=== PATIENT | male | born 1980 | race Hispanic/Latino ===

== ENCOUNTER 2016-09-10 21:13 | Emergency (ER) | payer MEDICAID, OTHER ==
[2016-09-10 21:13] VITALS: BMI 39.5
[2016-09-10 21:23] VITALS: BP 132/75; PULSE 97; RESP 17; TEMP 98.4; O2SAT 98
--- NOTE | 2016-09-10 23:14 | ED PDOC ---
HPI: Skin/Bite Injury Time Seen by Provider: 09/10/16 21:22 Chief Complaint (Nursing): Abnormal Skin Integrity Chief Complaint (Provider): Lip laceration History Per: Patient History/Exam Limitations: no limitations Onset/Duration Of Symptoms: Mins Current Symptoms Are (Timing): Still Present Quality Of Symptoms: Painful Severity: Mild Pain Scale Rating Of: 3 Additional Complaint(s): Pt states he was walking and not paying attention when he tripped on a bench. Tetanus 1.5 years ago. Past Medical History Reviewed: Historical Data, Nursing Documentation, Vital Signs Vital Signs: Last Vital Signs Temp 98.4 F 09/10/16 21:19 Pulse 97 H 09/10/16 21:19 Resp 17 09/10/16 21:19 BP 132/75 09/10/16 21:19 Pulse Ox 98 09/10/16 21:19 - Medical History PMH: Asthma, Bronchitis, Hiatal Hernia, Pneumonia - Surgical History Surgical History: No Surg Hx - Family History Family History: States: Unknown Family Hx - Living Arrangements Living Arrangements: With Family - Social History Current smoker - smoking cessation education provided: Yes Alcohol: Occasional Drugs: Denies - Immunization History Hx Tetanus Toxoid Vaccination: No Hx Influenza Vaccination: No Hx Pneumococcal Vaccination: No - Home Medications Home Medications: Ambulatory Orders Medication Instructions Recorded No Known Home Med 09/10/16 - Allergies Allergies/Adverse Reactions: Allergies Allergy/AdvReac Type Severity Reaction Status Date / Time No Known Allergies Allergy Verified 06/17/16 12:52 Review of Systems ROS Statement: Except As Marked, All Systems Reviewed And Found Negative Skin: Positive for: Other Physical Exam - Reviewed Nursing Documentation Reviewed: Yes Vital Signs Reviewed: Yes - Physical Exam Appears: Positive for: Well, Non-toxic, No Acute Distress Head Exam: Positive for: ATRAUMATIC, NORMAL INSPECTION, NORMOCEPHALIC Skin: Positive for: Warm. Negative for: Normal Color ((+) 2.5 cm laceratin, left upper lip through the [place] boarder, (+) 2 cm laceration inner upp lip ) Eye Exam: Positive for: Normal appearance, EOMI, PERRL ENT: Positive for: Normal ENT Inspection Neck: Positive for: Normal, Painless ROM Cardiovascular/Chest: Positive for: Regular Rate, Rhythm Respiratory: Positive for: CNT, Normal Breath Sounds Gastrointestinal/Abdominal: Positive for: Normal Exam, Bowel Sounds, Soft Back: Positive for: Normal Inspection Extremity: Positive for: Normal ROM Neurologic/Psych: Positive for: Alert, Oriented - ECG O2 Sat by Pulse Oximetry: 98 Pulse Ox Interpretation: Normal Medical Decision Making Medical Decision Making: Antibiotic ointment applied on upper left lip/mouth Disposition - Clinical Impression Clinical Impression: Lip laceration - Patient ED Disposition Is Patient to be Admitted: No Counseled Patient/Family Regarding: Diagnosis, Need For Followup - Disposition Referrals: Provider MINOO, [Primary Care Provider] - [facility] [Outside] Disposition: Routine/Home Disposition Time: 23:07 Condition: GOOD Instructions: Care For Your Absorbable Stitches (ED) Laceration - Laceration Repair Upper left Wound Length (In cm): 2.5 Description Of Wound: Linear Anesthesia: Lidocaine 1% (1cc) Wound Examination: Irrigated With Saline, No FB With Wound Exploration, No Tendon Injury With Wound Exploration Wound Closure: Suture (6.0) Suture Technique And Material Used: Interrupted (#7 ), Chromic Wound Complexity: Simple Inner upper lip Wound Length (In cm): 2cm Description Of Wound: Irregular Anesthesia: Lidocaine 1% (1cc) Wound Examination: Irrigated With Saline, No FB With Wound Exploration, No Tendon Injury With Wound Exploration Wound Closure: Suture (#4 ) Suture Technique And Material Used: Running (6.0), Chromic Wound Complexity: Simple
== END 2016-09-10 23:20 | disposition home or self-care (01) ==
LOC: H.ER 21:13
DX: S01.511A Laceration without foreign body of lip, initial encounter (principal); F17.200 Nicotine dependence, unspecified, uncomplicated; J45.909 Unspecified asthma, uncomplicated

== ENCOUNTER 2017-05-02 07:14 | Emergency (ER) | payer OTHER ==
[2017-05-02 07:15] VITALS: BMI 39.5
[2017-05-02 07:28] VITALS: BP 138/92; PULSE 105; RESP 17; TEMP 97.7; O2SAT 98
[2017-05-02] MEDS ORDERED: Albuterol 0.083% Inhal Sol (2.5 mg/3 mL) UD INH ONE (08:18)
--- NOTE | 2017-05-02 09:05 | ED PDOC ---
HPI: CCC, URI, Sore Throat Time Seen by Provider: 05/02/17 07:19 Chief Complaint (Nursing): Cough, Cold, Congestion Chief Complaint (Provider): Cough History Per: Patient History/Exam Limitations: no limitations Have you had recent travel within the past 21 days to any of the following countries: [place], [place], [place] or [place]?: No Onset/Duration Of Symptoms: Days Current Symptoms Are (Timing): Still Present Location Of Pain: Throat Associated Symptoms: Sore Throat, Cough, Sputum, Myalgias Additional History Per: Patient Additional Complaint(s): 36yo male, presents to ED for evaluation of a productive cough with green sputum for the past 3 days. Patient also reports associated throat pain; he denies any fever, vomiting or diarrhea. Patient denies any known sick contacts. No other complaints. Past Medical History Vital Signs: Last Vital Signs Temp 97.7 F 05/02/17 07:25 Pulse 105 H 05/02/17 07:25 Resp 17 05/02/17 07:25 BP 138/92 H 05/02/17 07:25 Pulse Ox 98 05/02/17 09:07 - Medical History PMH: Asthma, Bronchitis, Hiatal Hernia, HTN, Pneumonia - Surgical History Surgical History: No Surg Hx - Family History Family History: States: No Known Family Hx, Unknown Family Hx - Social History Current smoker - smoking cessation education provided: Yes SMOKER/PACKS PER DAY:: 1 - Immunization History Hx Tetanus Toxoid Vaccination: No Hx Influenza Vaccination: No Hx Pneumococcal Vaccination: No - Home Medications Home Medications: Ambulatory Orders Medication Instructions Recorded No Known Home Med 09/10/16 - Allergies Allergies/Adverse Reactions: Allergies Allergy/AdvReac Type Severity Reaction Status Date / Time No Known Allergies Allergy Verified 06/17/16 12:52 Review of Systems ROS Statement: Except As Marked, All Systems Reviewed And Found Negative Constitutional: Negative for: Fever ENT: Positive for: Throat Pain Respiratory: Positive for: Cough Gastrointestinal: Negative for: Vomiting, Diarrhea Physical Exam - Reviewed Nursing Documentation Reviewed: Yes Vital Signs Reviewed: Yes - Physical Exam Appears: Positive for: Non-toxic Head Exam: Positive for: ATRAUMATIC Skin: Positive for: Normal Color Eye Exam: Positive for: Normal appearance ENT: Positive for: Pharyngeal Erythema. Negative for: Tonsillar Exudate, Tonsillar Swelling Neck: Positive for: Normal, Supple Cardiovascular/Chest: Positive for: Regular Rate, Rhythm Respiratory: Positive for: Rhonchi (right > left ). Negative for: Respiratory Distress Neurologic/Psych: Positive for: Alert, Oriented. Negative for: Motor/Sensory Deficits - ECG O2 Sat by Pulse Oximetry: 98 (RA) Pulse Ox Interpretation: Normal Medical Decision Making Medical Decision Making: Time: 809 Impression: URI Plan: -- Throat culture -- Toradol 30 mg IM -- Albuterol -- Chest x-ray Reassess Time: 1101 Chest x-ray reviewed with no acute disease. Patient reports feeling much better and is stable for discharge home. Given prescriptions for antibiotics and informed to follow up with PCP in 1-2 days. Scribe Attestation: Documented by Diamond Dos Santos acting as a scribe for Nuzhat Ramos MD. Provider Attestation: All medical record entries made by the Scribe were at my direction and personally dictated by me. I have reviewed the chart and agree that the record accurately reflects my personal performance of the history, physical exam, medical decision making, and the department course for this patient. I have also personally directed, reviewed, and agree with the discharge instructions and disposition. Disposition - Disposition Referrals: Mustapha Herron MD [Primary Care Provider] - Disposition: Routine/Home Disposition Time: 11:01 Condition: STABLE Forms: [employer] ([place])
--- NOTE | 2017-05-02 10:22 | RAD ---
HISTORY: cough COMPARISON: No prior. TECHNIQUE: Chest PA and lateral FINDINGS: LUNGS: No active pulmonary disease. PLEURA: No significant pleural effusion identified. No pneumothorax apparent. CARDIOVASCULAR: Normal. OSSEOUS STRUCTURES: No significant abnormalities. VISUALIZED UPPER ABDOMEN: Normal. OTHER FINDINGS: None. IMPRESSION: No active disease.
== END 2017-05-02 11:29 | disposition home or self-care (01) ==
LOC: SUPCPDRO 07:14 → H.ER 07:14
DX: J45.909 Unspecified asthma, uncomplicated (principal); I10 Essential (primary) hypertension
CPT/HCPCS: 71020; 87070; 87430; 94640; 96372; 99282; J1885

== ENCOUNTER 2017-05-26 16:20 | Emergency (ER) | payer OTHER ==
[2017-05-26 16:21] VITALS: BMI 39.5
[2017-05-26] MEDS ORDERED: Albuterol-Ipratrop 3 mg / 0.5 (3 ml) UD ONE (18:26)
[2017-05-26] MEDS: Albuterol-Ipratrop 3 mg / 0.5 (3 ml) UD INH STA (18:26)
[2017-05-26 18:28] VITALS: RESP 18; O2SAT 98
--- NOTE | 2017-05-26 18:38 | ED PDOC ---
HPI: SOB/CHF/COPD Time Seen by Provider: 05/26/17 16:40 Chief Complaint (Nursing): Shortness Of Breath Chief Complaint (Provider): Shortness Of Breath History Per: Patient History/Exam Limitations: no limitations Onset/Duration Of Symptoms: Days (x6) Current Symptoms Are (Timing): Still Present Additional Complaint(s): Lamont Camarillo is a 36 year old male with a past medical history of bronchitis who presents to the ED complaining of shortness of breath and cough x6 days. Patient states his symptoms have been presents since Tuesday and he saw his PMD Tuesday. States his PMD prescribed him Prednisone, antibiotics, and an Albuterol pump, but he lost the prescription for the Albuterol pump. Denies fever, vomiting, chest pain, and diarrhea, but confirms minimal cough. PMD: Non-[facility] Provider Past Medical History Reviewed: Historical Data, Nursing Documentation, Vital Signs Vital Signs: Last Vital Signs Temp 98.6 F 05/26/17 19:07 Pulse 86 05/26/17 19:07 Resp 18 05/26/17 19:07 BP 120/68 05/26/17 19:07 Pulse Ox 98 05/26/17 19:07 - Medical History PMH: Asthma, Bronchitis, Hiatal Hernia, HTN, Pneumonia - Family History Family History: States: Unknown Family Hx - Immunization History Hx Tetanus Toxoid Vaccination: No Hx Influenza Vaccination: No Hx Pneumococcal Vaccination: No - Home Medications Home Medications: Ambulatory Orders Medication Instructions Recorded Albuterol HFA [Ventolin HFA 90 1 - 2 puff IH Q4H PRN #1 bottle 05/02/17 mcg/actuation (8 g)] Azithromycin [Zithromax] 250 mg PO DAILY #6 tab 05/02/17 Albuterol HFA [Ventolin HFA 90 1 - 2 puff IH Q4H PRN #1 bottle 05/26/17 mcg/actuation (8 g)] - Allergies Allergies/Adverse Reactions: Allergies Allergy/AdvReac Type Severity Reaction Status Date / Time No Known Allergies Allergy Verified 06/17/16 12:52 Review of Systems ROS Statement: Except As Marked, All Systems Reviewed And Found Negative Constitutional: Negative for: Fever Cardiovascular: Negative for: Chest Pain Respiratory: Positive for: Cough (minimal), Shortness of Breath Gastrointestinal: Negative for: Vomiting, Diarrhea Physical Exam - Reviewed Nursing Documentation Reviewed: Yes Vital Signs Reviewed: Yes - Physical Exam Appears: Positive for: Non-toxic, No Acute Distress Head Exam: Positive for: ATRAUMATIC, NORMAL INSPECTION, NORMOCEPHALIC Skin: Positive for: Normal Color, Warm, Dry Eye Exam: Positive for: EOMI, Normal appearance, PERRL Neck: Positive for: Normal, Painless ROM, Supple Cardiovascular/Chest: Positive for: Regular Rate, Rhythm. Negative for: Murmur Respiratory: Positive for: Normal Breath Sounds. Negative for: Wheezing, Respiratory Distress Gastrointestinal/Abdominal: Positive for: Normal Exam, Bowel Sounds, Soft. Negative for: Tenderness Back: Positive for: Normal Inspection. Negative for: L CVA Tenderness, R CVA Tenderness, Vertebral Tenderness Extremity: Positive for: Normal ROM. Negative for: Pedal Edema, Deformity Neurologic/Psych: Positive for: Alert, Oriented (x3). Negative for: Motor/ Sensory Deficits - ECG O2 Sat by Pulse Oximetry: 98 (RA) Pulse Ox Interpretation: Normal Medical Decision Making Medical Decision Making: Time: 18:09 Initial Impression: Shortness of breath --Duoneb 3 ml INH --Nebulizer treatment --Peak flow --Reevaluation pt feels better w medication. Scribe Attestation: Documented by Dale Lara acting as a scribe for Nuzhat Ramos MD. Scribe Attestation: All medical record entries made by the Scribe were at my direction and personally dictated by me. I have reviewed the chart and agree that the record accurately reflects my personal performance of the history, physical exam, medical decision making, and the department course for this patient. I have also personally directed, reviewed, and agree with the discharge instructions and disposition. Disposition - Clinical Impression Clinical Impression: Bronchitis - Patient ED Disposition Is Patient to be Admitted: No Counseled Patient/Family Regarding: Studies Performed, Diagnosis, Need For Followup - Disposition Disposition: Routine/Home Disposition Time: 18:50 Condition: IMPROVED Additional Instructions: follow up with your primary doctor in 1-2 days continue recently prescribed medications for bronchitis return to the ED with any worsening or concerning symptoms Prescriptions: Albuterol HFA [Ventolin HFA 90 mcg/actuation (8 g)] 1 - 2 puff IH Q4H PRN #1 bottle PRN Reason: Wheezing Instructions: Acute Bronchitis (ED) Forms: [employer] (E[place]ian), [facility] ED School/Work Excuse
[2017-05-26 19:07] VITALS: BP 120/68; PULSE 86; TEMP 98.6
--- NOTE | 2017-05-27 15:55 | CARD ---
APPROVED REPORT EKG Measurement Heart [id number] <Conclusion> Normal sinus rhythm Normal ECG
== END 2017-05-26 19:07 | disposition home or self-care (01) ==
LOC: H.ER 16:20
DX: J44.9 Chronic obstructive pulmonary disease, unspecified (principal); I10 Essential (primary) hypertension

== ENCOUNTER 2017-05-31 21:47 | Emergency (ER) | payer OTHER ==
[2017-05-31 21:47] VITALS: BMI 39.5
[2017-05-31 21:54] VITALS: BP 151/96; PULSE 107; RESP 20; TEMP 97.9; O2SAT 97
[2017-05-31] MEDS ORDERED: Albuterol-Ipratrop 3 mg / 0.5 (3 ml) UD INH STA (22:01)
--- NOTE | 2017-05-31 22:03 | ED PDOC ---
HPI: SOB/CHF/COPD Time Seen by Provider: 05/31/17 21:54 Chief Complaint (Nursing): Shortness Of Breath Chief Complaint (Provider): SOB History Per: Patient Additional Complaint(s): 36 yo male, PMH of HTN, presents to ED with complaints of wheezing and shortness of breath since this morning. Pt seen and evaluated here 2 days ago for the same, was diagnosed with bronchitis and lost his inhaler .Pt able to speak in full sentences without difficulty. Past Medical History Reviewed: Nursing Documentation, Vital Signs Vital Signs: Last Vital Signs Temp 97.9 F 05/31/17 21:51 Pulse 107 H 05/31/17 21:51 Resp 20 05/31/17 21:51 BP 151/96 H 05/31/17 21:51 Pulse Ox 97 05/31/17 22:03 - Medical History PMH: Asthma, Bronchitis, Hiatal Hernia, HTN, Pneumonia - Family History Family History: States: Unknown Family Hx - Living Arrangements Living Arrangements: With Family - Social History Current smoker - smoking cessation education provided: Yes Alcohol: Social Drugs: Denies - Immunization History Hx Tetanus Toxoid Vaccination: No Hx Influenza Vaccination: No Hx Pneumococcal Vaccination: No - Home Medications Home Medications: Ambulatory Orders Medication Instructions Recorded Albuterol HFA [Ventolin HFA 90 1 - 2 puff IH Q4H PRN #1 bottle 05/02/17 mcg/actuation (8 g)] Azithromycin [Zithromax] 250 mg PO DAILY #6 tab 05/02/17 Albuterol HFA [Ventolin HFA 90 1 - 2 puff IH Q4H PRN #1 bottle 05/26/17 mcg/actuation (8 g)] Albuterol HFA [Ventolin HFA 90 2 puff IH [id number] PRN #1 puff 05/31/17 mcg/actuation (8 g)] Promethazine HCl/Codeine 5 ml PO HS #80 ml 05/31/17 [Prometh-Codein 6.25-10 mg/5 ml] - Allergies Allergies/Adverse Reactions: Allergies Allergy/AdvReac Type Severity Reaction Status Date / Time No Known Allergies Allergy Verified 06/17/16 12:52 Review of Systems ROS Statement: Except As Marked, All Systems Reviewed And Found Negative Respiratory: Positive for: Cough, Shortness of Breath Physical Exam - Reviewed Nursing Documentation Reviewed: Yes Vital Signs Reviewed: Yes - Physical Exam Appears: Positive for: Well, Non-toxic, No Acute Distress Head Exam: Positive for: ATRAUMATIC, NORMAL INSPECTION, NORMOCEPHALIC Skin: Positive for: Normal Color, Warm, DRY Eye Exam: Positive for: EOMI, Normal appearance, PERRL ENT: Positive for: Normal ENT Inspection Neck: Positive for: Normal, Painless ROM Cardiovascular/Chest: Positive for: Regular Rate, Rhythm Respiratory: Positive for: Wheezing (expiratory b/l) Gastrointestinal/Abdominal: Positive for: Normal Exam, Bowel Sounds, Soft Back: Positive for: Normal Inspection Extremity: Positive for: Normal ROM Neurologic/Psych: Positive for: Alert, Oriented - ECG O2 Sat by Pulse Oximetry: 97 Medical Decision Making Medical Decision Making: Medicated with Duo neb and prednisone PO ON re-eval, pt doing well, no complaints of pain Lungs CTA b/l with full resolution of wheezing. POX: 100% on RA Disposition - Clinical Impression Clinical Impression: Bronchospasm, acute - Patient ED Disposition Is Patient to be Admitted: No - Disposition Disposition: Routine/Home Disposition Time: 22:10 Condition: STABLE Prescriptions: Albuterol HFA [Ventolin HFA 90 mcg/actuation (8 g)] 2 puff IH [id number] PRN #1 puff PRN Reason: Shortness Of Breath Promethazine HCl/Codeine [Prometh-Codein 6.25-10 mg/5 ml] 5 ml PO HS #80 ml Instructions: Bronchospasm (ED) Forms: [employer] [facility] ([place]alian), [facility] ED School/Work Excuse
== END 2017-05-31 22:53 | disposition home or self-care (01) ==
LOC: H.ER 21:47
DX: J98.01 Acute bronchospasm (principal); I10 Essential (primary) hypertension; F17.200 Nicotine dependence, unspecified, uncomplicated

== ENCOUNTER 2017-06-13 09:03 | Emergency (ER) | payer OTHER ==
[2017-06-13 09:03] VITALS: BMI 39.5
[2017-06-13 09:11] VITALS: BP 137/80; PULSE 96; TEMP 97; O2SAT 96
[2017-06-13] MEDS ORDERED: Albuterol-Ipratrop 3 mg / 0.5 (3 ml) UD INH STA ×3 (11:17→11:38)
[2017-06-13] MEDS ORDERED: Albuterol-Ipratrop 3 mg / 0.5 (3 ml) UD ONE ×2 (11:21→11:48)
[2017-06-13] MEDS ORDERED: Promethazine/Cod 6.25mg-10mg/5ml Syr UD PO STA (11:39)
[2017-06-13] MEDS ORDERED: Promethazine/Cod 6.25mg-10mg/5ml Syr UD ONE (11:48)
--- NOTE | 2017-06-13 11:54 | ED PDOC ---
HPI: CCC, URI, Sore Throat Time Seen by Provider: 06/13/17 10:48 Chief Complaint (Nursing): Cough, Cold, Congestion Chief Complaint (Provider): Cough, Cold, Congestion History Per: Patient History/Exam Limitations: no limitations Onset/Duration Of Symptoms: Days (x 1 week) Current Symptoms Are (Timing): Still Present Additional Complaint(s): 36 year old male with a hsitory of asthma presents to the ED c/o cough, congestion and wheezing, onset 1 week. 3 days ago he went to the hospital in [place] where he was diagnosed with asthma adheather sylvester. Was given steroids and albuterol treatment. Symptoms have improved but are still present. Denies fever and chest pain. PMD: Dr. Mustapha Saldana Past Medical History Reviewed: Historical Data, Nursing Documentation, Vital Signs Vital Signs: Last Vital Signs Temp 97 F L 06/13/17 09:10 Pulse 96 H 06/13/17 09:10 Resp BP 137/80 06/13/17 09:10 Pulse Ox 96 06/13/17 12:44 - Medical History PMH: Asthma, Bronchitis, Hiatal Hernia, HTN, Pneumonia - Surgical History Surgical History: No Surg Hx - Family History Family History: States: Unknown Family Hx - Social History Current smoker - smoking cessation education provided: Yes Alcohol: None Drugs: Denies - Immunization History Hx Tetanus Toxoid Vaccination: No Hx Influenza Vaccination: No Hx Pneumococcal Vaccination: No - Home Medications Home Medications: Ambulatory Orders Medication Instructions Recorded Albuterol HFA [Ventolin HFA 90 1 - 2 puff IH Q4H PRN #1 bottle 05/02/17 mcg/actuation (8 g)] Azithromycin [Zithromax] 250 mg PO DAILY #6 tab 05/02/17 Albuterol HFA [Ventolin HFA 90 1 - 2 puff IH Q4H PRN #1 bottle 05/26/17 mcg/actuation (8 g)] Albuterol HFA [Ventolin HFA 90 2 puff IH [id number] PRN #1 puff 05/31/17 mcg/actuation (8 g)] Promethazine HCl/Codeine 5 ml PO HS #80 ml 05/31/17 [Prometh-Codein 6.25-10 mg/5 ml] - Allergies Allergies/Adverse Reactions: Allergies Allergy/AdvReac Type Severity Reaction Status Date / Time No Known Allergies Allergy Verified 06/17/16 12:52 Review of Systems ROS Statement: Except As Marked, All Systems Reviewed And Found Negative Constitutional: Negative for: Fever ENT: Positive for: Nose Congestion Cardiovascular: Negative for: Chest Pain Respiratory: Positive for: Cough, Wheezing Physical Exam - Reviewed Nursing Documentation Reviewed: Yes Vital Signs Reviewed: Yes - Physical Exam Appears: Positive for: Non-toxic, No Acute Distress Head Exam: Positive for: ATRAUMATIC, NORMOCEPHALIC Skin: Positive for: Normal Color, Warm, Dry Eye Exam: Positive for: EOMI Neck: Positive for: Normal, Painless ROM, Supple Cardiovascular/Chest: Positive for: Regular Rate, Rhythm. Negative for: Edema Respiratory: Positive for: Wheezing (bilaterally). Negative for: Accessory Muscle Use Gastrointestinal/Abdominal: Positive for: Soft. Negative for: Tenderness Extremity: Positive for: Normal ROM. Negative for: Deformity, Swelling Neurologic/Psych: Positive for: Alert, Oriented. Negative for: Motor/Sensory Deficits - ECG O2 Sat by Pulse Oximetry: 96 (RA) Pulse Ox Interpretation: Normal - Progress Re-evaluation Time: 12:42 Condition: Re-examined, Improved Nebulizer Treatments/Peak Flow - Duonebs Number of Bronchodilator Doses given?: 3 - Steroid Treatment Steroid: Not Clinically Indicated - Clinical Response Clinical Response: Improved Medical Decision Making Medical Decision Making: Time: 11:17 Impression: acute bronchitis, possible asthma exacerbation Initial Plan: --Duoneb 3 ml INH --Peak Flow Pre/Post Time: 11:38 --Duoneb 3 ml INH --Duoneb 3 ml INH --Duoneb 3 ml INH --Peak Flow Pre/Post --Peak Flow Pre/Post Patient is already taking Prednisone and Azithromycin with some improvement. Scribe Attestation: Documented by Esther Fernandes, acting as a scribe for Alem Sanchez MD Provider Scribe Attestation: All medical record entries made by the Scribe were at my direction and personally dictated by me. I have reviewed the chart and agree that the record accurately reflects my personal performance of the history, physical exam, medical decision making, and the department course for this patient. I have also personally directed, reviewed, and agree with the discharge instructions and disposition. Disposition - Clinical Impression Clinical Impression: Bronchitis, Asthma - Patient ED Disposition Is Patient to be Admitted: No Doctor Will See Patient In The: Office Counseled Patient/Family Regarding: Studies Performed, Diagnosis, Need For Followup - Disposition Referrals: [facility] [Outside] Disposition: Routine/Home Disposition Time: 12:43 Condition: GOOD Additional Instructions: Follow up with your PCP in 2-3 days. Instructions: Acute Bronchitis (ED) Forms: [facility] ED School/Work Excuse
== END 2017-06-13 12:48 | disposition home or self-care (01) ==
LOC: H.ER 09:03
DX: J20.9 Acute bronchitis, unspecified (principal); J45.909 Unspecified asthma, uncomplicated; I10 Essential (primary) hypertension; F17.200 Nicotine dependence, unspecified, uncomplicated

== ENCOUNTER 2017-07-07 09:06 | Emergency (ER) | payer OTHER ==
[2017-07-07 09:06] VITALS: BMI 39.5
[2017-07-07 09:13] VITALS: BP 140/77; PULSE 113; TEMP 97; O2SAT 98
[2017-07-07] MEDS ORDERED: Sodium Chloride 0.9% 1,000 ML IV STA (09:39)
--- NOTE | 2017-07-07 09:56 | ED PDOC ---
HPI: Abdomen Time Seen by Provider: 07/07/17 09:18 Chief Complaint (Nursing): Abdominal Pain History Per: Patient Onset/Duration Of Symptoms: Days (2) Current Symptoms Are (Timing): Still Present Severity: Moderate Pain Scale Rating Of: 4 Location Of Pain/Discomfort: Other (Right inguinal) Quality Of Discomfort: Unable To Describe Associated Symptoms: Nausea. denies: Vomiting, Diarrhea Exacerbating Factors: None Alleviating Factors: None Additional Complaint(s): Right inguinal pain assoc with nausea. Passing gas, no diarrhea. H/o right inguinal hernia Past Medical History Vital Signs: Last Vital Signs Temp 97 F L 07/07/17 09:12 Pulse 113 H 07/07/17 09:12 Resp BP 140/77 07/07/17 09:12 Pulse Ox 98 07/07/17 09:12 - Medical History PMH: Asthma, Bronchitis, Hiatal Hernia, HTN, Pneumonia - Family History Family History: States: Unknown Family Hx - Immunization History Hx Tetanus Toxoid Vaccination: No Hx Influenza Vaccination: No Hx Pneumococcal Vaccination: No - Home Medications Home Medications: Ambulatory Orders Medication Instructions Recorded Albuterol HFA [Ventolin HFA 90 1 - 2 puff IH Q4H PRN #1 bottle 05/02/17 mcg/actuation (8 g)] Azithromycin [Zithromax] 250 mg PO DAILY #6 tab 05/02/17 Albuterol HFA [Ventolin HFA 90 1 - 2 puff IH Q4H PRN #1 bottle 05/26/17 mcg/actuation (8 g)] Albuterol HFA [Ventolin HFA 90 2 puff IH [id number] PRN #1 puff 05/31/17 mcg/actuation (8 g)] Promethazine HCl/Codeine 5 ml PO HS #80 ml 05/31/17 [Prometh-Codein 6.25-10 mg/5 ml] Naproxen [Naprosyn] 500 mg PO Q12H #20 tab 07/07/17 - Allergies Allergies/Adverse Reactions: Allergies Allergy/AdvReac Type Severity Reaction Status Date / Time No Known Allergies Allergy Verified 06/17/16 12:52 Review of Systems Constitutional: Negative for: Fever Gastrointestinal: Positive for: Nausea, Abdominal Pain (Right inguinal). Negative for: Vomiting Genitourinary Male: Negative for: Dysuria, Frequency Physical Exam - Physical Exam Appears: Positive for: Non-toxic, No Acute Distress Skin: Positive for: Normal Color, Warm, DRY Gastrointestinal/Abdominal: Positive for: Bowel Sounds, Soft. Negative for: Tenderness, Distended, Guarding, Rebound, Hernia - ECG O2 Sat by Pulse Oximetry: 98 Medical Decision Making Medical Decision Making: Pt requests to be dc'ed will return if pain worsens. Doubt incarceration however risk of incarceration discussed with pt including obstruction perforation sepsis and . Disposition - Clinical Impression Clinical Impression: Abdominal pain - Patient ED Disposition Is Patient to be Admitted: No Counseled Patient/Family Regarding: Diagnosis, Need For Followup, Rx Given - Disposition Referrals: Martinez Maxwell MD [Staff Provider] - Disposition: Routine/Home Disposition Time: 09:56 Condition: FAIR Prescriptions: Naproxen [Naprosyn] 500 mg PO Q12H #20 tab Instructions: Abdominal Pain (ED)
== END 2017-07-07 10:09 | disposition home or self-care (01) ==
LOC: H.ER 09:06
DX: R10.9 Unspecified abdominal pain (principal); I10 Essential (primary) hypertension; J45.909 Unspecified asthma, uncomplicated

== ENCOUNTER 2017-07-13 23:34 | Emergency (ER) | payer OTHER ==
[2017-07-13 23:34] VITALS: BMI 39.5
[2017-07-13 23:47] VITALS: BP 126/76; PULSE 94; RESP 16; TEMP 98; O2SAT 98
--- NOTE | 2017-07-14 00:52 | ED PDOC ---
HPI: Male Pain Time Seen by Provider: 07/13/17 23:56 Chief Complaint (Nursing): Groin Pain Chief Complaint (Provider): Hernia Pain History Per: Patient History/Exam Limitations: no limitations Current Symptoms Are (Timing): Still Present Quality Of Discomfort: Other ("bothersome") Additional Complaint(s): 37 year old male presents to ED with complaints of inguinal hernia pain x1 week and has a history of a right inguinal hernia. Patient notes that the hernia has become "bothersome" while walking. (-) sensation of hernia "coming out, fever, or chills. Confirms he is passing gas normally and having normal bowel movements. PCP: Gopal Past Medical History Reviewed: Historical Data, Nursing Documentation, Vital Signs Vital Signs: Last Vital Signs Temp 98 F 07/13/17 23:44 Pulse 94 H 07/13/17 23:44 Resp 16 07/13/17 23:44 BP 126/76 07/13/17 23:44 Pulse Ox 98 07/13/17 23:44 - Medical History PMH: Asthma, Bronchitis, Hiatal Hernia, HTN, Pneumonia - Family History Family History: States: Unknown Family Hx - Social History Current smoker - smoking cessation education provided: Yes Ex-Smoker (has not smoked in the last 12 months): No - Immunization History Hx Tetanus Toxoid Vaccination: No Hx Influenza Vaccination: No Hx Pneumococcal Vaccination: No - Home Medications Home Medications: Ambulatory Orders Medication Instructions Recorded Albuterol HFA [Ventolin HFA 90 1 - 2 puff IH Q4H PRN #1 bottle 05/02/17 mcg/actuation (8 g)] Azithromycin [Zithromax] 250 mg PO DAILY #6 tab 05/02/17 Albuterol HFA [Ventolin HFA 90 1 - 2 puff IH Q4H PRN #1 bottle 05/26/17 mcg/actuation (8 g)] Albuterol HFA [Ventolin HFA 90 2 puff IH [id number] PRN #1 puff 05/31/17 mcg/actuation (8 g)] Promethazine HCl/Codeine 5 ml PO HS #80 ml 05/31/17 [Prometh-Codein 6.25-10 mg/5 ml] Naproxen [Naprosyn] 500 mg PO Q12H #20 tab 07/07/17 Ketorolac Tromethamine [Toradol] 10 mg PO BID #30 tab 07/14/17 - Allergies Allergies/Adverse Reactions: Allergies Allergy/AdvReac Type Severity Reaction Status Date / Time No Known Allergies Allergy Verified 07/13/17 23:44 Review of Systems ROS Statement: Except As Marked, All Systems Reviewed And Found Negative Constitutional: Negative for: Fever, Chills Genitourinary Male: Positive for: Other (right inguinal hernia pain) Physical Exam - Reviewed Nursing Documentation Reviewed: Yes Vital Signs Reviewed: Yes - Physical Exam Appears: Positive for: Non-toxic, No Acute Distress (Obese) Skin: Positive for: Normal Color, Warm, Dry Cardiovascular/Chest: Positive for: Regular Rate, Rhythm. Negative for: Murmur Respiratory: Positive for: Normal Breath Sounds. Negative for: Respiratory Distress Gastrointestinal/Abdominal: Positive for: Soft. Negative for: Tenderness Male Genital Exam: Positive for: no hernia (no hernia palpated), inguinal tenderness (right inguinal TTP) Neurologic/Psych: Positive for: Alert, Oriented - ECG O2 Sat by Pulse Oximetry: 98 (RA) Pulse Ox Interpretation: Normal Medical Decision Making Medical Decision Makin Initial impression: inguinal hernia pain, no signs of strangulation or incarceration Initial plan: * UDip * Toradol 60mg IM * Re-eval 0020 Patient is stable for discharge home. Patient will follow up with PCP and surgeon. Scribe Attestation: Documented by Bee Breaux acting as a scribe for Favian Ray MD. Scribe Attestation: All medical record entries made by the Scribe were at my direction and personally dictated by me. I have reviewed the chart and agree that the record accurately reflects my personal performance of the history, physical exam, medical decision making, and the department course for this patient. I have also personally directed, reviewed, and agree with the discharge instructions and disposition. Disposition - Clinical Impression Clinical Impression: Inguinal hernia - Disposition Referrals: Landon Neri MD [Staff Provider] - Mustapha Herron MD [Primary Care Provider] - Disposition: Routine/Home Disposition Time: 00:20 Condition: STABLE Prescriptions: Ketorolac Tromethamine [Toradol] 10 mg PO BID #30 tab Instructions: Inguinal Hernia (ED) Forms: [facility] (Albanian), [facility] School/Work Excuse
== END 2017-07-14 00:35 | disposition home or self-care (01) ==
LOC: H.ER 23:34
DX: K40.90 Unilateral inguinal hernia, without obstruction or gangrene, not specified as recurrent (principal); I10 Essential (primary) hypertension
CPT/HCPCS: 96372; 99282; J1885